=== PATIENT | female | born 1980 | race Caucasian/White ===

== ENCOUNTER → 2020-11-27 | Outpatient (CLI) | payer OTHER ==
--- NOTE | 2020-11-27 15:59 | US ---
EXAMINATION TYPE: US pelvic complete DATE OF EXAM: 11/27/2020 COMPARISON: NONE CLINICAL HISTORY: 40-year-old female N94.6 Dysmenorrhea, unspecified. DYSMENORRHEA TECHNIQUE: Transabdominal (TA). FINDINGS: EXAM MEASUREMENTS: Uterus: 9.9 X 4.3 X 6.4 cm Endometrial Stripe: 1.4 cm Right Ovary: 3.5 X 2.3 X 2.8 cm Left Ovary: 2.9 X 1.7 X 2.3 cm 1. Uterus: Anteverted and otherwise wnl 2. Endometrium: appears wnl, the thickness should correspond to the secretory phase of the menstrual cycle. 3. Right Ovary: Follicular change. May be a couple punctate calcifications/phleboliths. 4. Left Ovary: Follicular change Is present. 5. Bilateral Adnexa: wnl 6. Posterior cul-de-sac: wnl IMPRESSION: Follicular change in the ovaries. The endometrial stripe thickness of 1.4 cm should correspond to the secretory phase of the menstrual cycle.
== END | disposition home or self-care (01) ==
LOC: RADUSWWP 13:37
PROVIDERS: ATTEND Obstetrics & Gynecology
DX: N94.6 Dysmenorrhea, unspecified (principal); R93.89 Abnormal findings on diagnostic imaging of other specified body structures
CPT/HCPCS: 76856